=== PATIENT | male | born 1955 | race African-American/Black ===

== ENCOUNTER 2023-06-10 17:00 | Outpatient (CLI) | payer MEDICARE, OTHER | END 2023-06-10 17:01 | disposition home or self-care (01) | LOC: SLEEPLAB 17:00 | PROVIDERS: ATTEND Internal Medicine | DX: G47.33 Obstructive sleep apnea (adult) (pediatric) (principal) | CPT/HCPCS: 95810 ==

== ENCOUNTER 2023-07-20 17:00 | Outpatient (CLI) | payer OTHER | END 2023-07-20 17:01 | disposition home or self-care (01) | LOC: SLEEPLAB 17:00 | PROVIDERS: ATTEND Internal Medicine | DX: G47.33 Obstructive sleep apnea (adult) (pediatric) (principal) | CPT/HCPCS: 95811 ==